=== PATIENT | female | born 1970 | race Caucasian/White ===

== ENCOUNTER → 2017-06-20 | Outpatient (CLI) | payer MEDICARE, MEDICAID | LOC: COL.RAD 11:00 | DX: M79.672 Pain in left foot (principal) | CPT/HCPCS: J3301; Q9967 ==

== ENCOUNTER 2018-10-07 05:10 | Day surgery (SDC) | payer MEDICARE, MEDICAID ==
[~2018-10-07] VITALS: Ht 167.6 cm; Wt 153.3 kg
[2018-10-07] VITALS (9 sets, daily range): BP systolic 120–129; BP diastolic 53–86; PULSE 66–79; TEMP 97.4–98.2
[2018-10-07] MEDS ORDERED: JANUVIA 100MG100 MG PO (06:15)
[2018-10-07] MEDS ORDERED: VITAMIND3 5000 PO (06:16)
[2018-10-07] MEDS ORDERED: ESTRACE 1MG1 MG/TAB PO (06:16)
[2018-10-07] MEDS ORDERED: BUSPAR10 MG PO (06:16)
[2018-10-07] MEDS ORDERED: HCTZ 25MG TAB25 MG PO (06:17)
[2018-10-07] MEDS ORDERED: LEXAPRO20 MG PO (06:18)
[2018-10-07] MEDS ORDERED: BUSPAR DIVIDOSE15 MG PO (06:18)
[2018-10-07] MEDS ORDERED: ATARAX 25MG25 MG/TAB PO (06:19)
[2018-10-07] MEDS ORDERED: FLONASEALLERGY NS (06:19)
--- NOTE | 2018-10-07 09:20 | NUR ---
Patient returns to room 8 per cart from PACU and arouses to verbal stimuli. Temp 97.3. Patient returned to room on oxygen and placed on CPAP by R.T. Sats 99%. Foot of cart elevated and ice on the left ankle. Toes warm to touch and posterior splint with bulky eliz wrap dressing dry on the left lower leg. Foot of cart elevated and ice bag in place. Allowed to rest.
--- NOTE | 2018-10-07 09:35 | NUR ---
Remains on CPAP. Sats 95%. Foot of cart elevated.
--- NOTE | 2018-10-07 09:50 | NUR ---
Continues to rest and CPAP remains on with sats 96%. Toes on the left foot dry.
--- NOTE | 2018-10-07 10:05 | NUR ---
Continues to rest and remains on CPAP. Foot of cart elevated and ice bag on the left ankle. Toes warm to touch. Family in room. IV fluids infusing at 100cc/hr.
--- NOTE | 2018-10-07 10:20 | NUR ---
Becoming more awake and family at side.
--- NOTE | 2018-10-07 10:30 | NUR ---
Taken off CPAP and placed on oxygen at 2L per nasal cannula. Sats 95%. Patient complains of being hungry and given muffin, Sprite, and apple juice to eat and drink. Encouraged deep breathing and coughing to clear lungs. Less crackles noted with coughing.
--- NOTE | 2018-10-07 11:35 | NUR ---
Patient taken off oxygen and sats 93-94%. Patient assisted to the bathroom with use of walker and gait belt. Patient is non-weight bearing and the left leg remains numb due to block placed preop and denies pain. Gary wrap dressing dry. Sats 94% on room air after returning to room. Transportation notified. IV discontinued and given dismissal instructions. Patient states that she was given scripts for pain medication prior to coming in for surgery.
--- NOTE | 2018-10-07 12:05 | NUR ---
Patient dismissed to home per transportation van accompanied by son and friend. Dismissal instructions in hand.
== END 2018-10-07 12:05 | disposition home or self-care (01) ==
LOC: SDCO 05:10
DX: M67.02 Short Achilles tendon (acquired), left ankle (principal); M72.2 Plantar fascial fibromatosis; M19.072 Primary osteoarthritis, left ankle and foot; E11.9 Type 2 diabetes mellitus without complications; Z79.84 Long term (current) use of oral hypoglycemic drugs; Z88.0 Allergy status to penicillin; F41.9 Anxiety disorder, unspecified; F32.9 Major depressive disorder, single episode, unspecified; Z90.49 Acquired absence of other specified parts of digestive tract; Z90.710 Acquired absence of both cervix and uterus; Z83.3 Family history of diabetes mellitus; Z82.49 Family history of ischemic heart disease and other diseases of the circulatory system; Z80.9 Family history of malignant neoplasm, unspecified; Z88.8 Allergy status to other drugs, medicaments and biological substances; I10 Essential (primary) hypertension; G47.33 Obstructive sleep apnea (adult) (pediatric); M17.0 Bilateral primary osteoarthritis of knee; E66.01 Morbid (severe) obesity due to excess calories; Z68.43 Body mass index [BMI] 50.0-59.9, adult
CPT/HCPCS: C1713; J1100; J1885; J2250; J2405; J2704; J2795; J3010; J7030